=== PATIENT | male | born 1975 | race Caucasian/White ===

== ENCOUNTER 2017-10-29 14:23 | Inpatient (IN) | payer MEDICARE, OTHER ==
[~2017-10-29] VITALS: Ht 175.3 cm; Wt 65.0 kg
[2017-10-29 15:07] VITALS: BP 108/60; PULSE 79; RESP 16; TEMP 98.3; O2SAT 98
[2017-10-29] MEDS ORDERED: LEVE500S PO (15:44)
[2017-10-29] MEDS ORDERED: REPL5000 CHEW (15:44)
[2017-10-29] MEDS ORDERED: DILA30CA PO (15:44)
[2017-10-29] MEDS ORDERED: LEVO175T2 PO (15:44)
[2017-10-29] MEDS ORDERED: MORPHINE SULFATE 4 MG/ML INJ IV PUSH ONE (16:00)
--- NOTE | 2017-10-29 16:11 | PD ---
HPI Chief Complaint: Injury Time Seen by Provider: 15:23 Travel History International Travel<30 days: No Contact w/Intl Traveler<30days: No Traveled to known affect area: No History of Present Illness HPI 42-year-old man, fell in the bathroom, seen of [facility], diagnosed with an acetabular fracture, sent to the emergency department as a trauma transfer for acetabular/pelvic fracture with some evidence of hematoma. Patient's pain under control now. Otherwise feeling well. History Past Medical History Narrative Medical MR Seizure disorder Hypothyroidism Reactive hypoglycemia Ventriculomegaly Social History Alcohol Use: No Tobacco Use: No Allergies-Medications (Allergen,Severity, Reaction): Coded Allergies: No Known Allergies (Unverified , 10/29/17) Reported Meds & Prescriptions Reported Meds & Active Scripts Active Reported Dilantin (Phenytoin Extended) 30 Mg Cap 50 Mg PO TID Keppra Liq (Levetiracetam) 500 Mg/5 Ml Soln 1,000 Mg PO BID Levothyroxine (Levothyroxine Sodium) 175 Mcg Tab 175 Mcg PO DAILY Replesta (Cholecalciferol) 50,000 Unit Wafr 50,000 Units CHEW Q7D Review of Systems Except as stated in HPI: all other systems reviewed are Neg Physical Exam Narrative GENERAL: 42-year-old man, no acute distress. SKIN: Focused skin assessment warm/dry. HEAD: Abnormal shape to the cranial vault. No evidence of trauma. CARDIOVASCULAR: Warm and well perfused. RESPIRATORY: Normal rate and effort. GASTROINTESTINAL: Abdomen soft, non-tender, nondistended. Hepatic and splenic margins not palpable. MUSCULOSKELETAL: No obvious deformities. No clubbing. No cyanosis. No edema. NEUROLOGICAL: Awake and alert. No obvious cranial nerve deficits. Motor grossly within normal limits. Normal speech. PSYCHIATRIC: Appropriate mood and affect; insight and judgment normal. Data Data Last Documented VS Vital Signs Date Time Temp Pulse Resp B/P (MAP) Pulse Ox O2 Delivery O2 Flow Rate FiO2 10/29/17 15:07 98.3 79 16 108/60 (76) 98 Orders Orders Pelvis, Ap Only (Routine) (10/29/17 ) Iv Access Insert/Monitor (10/29/17 15:53) Morphine Inj (Morphine Inj) (10/29/17 16:00) Consult Orthopedic (10/29/17 ) [facility] Medical Decision Making Medical Screen Exam Complete: Yes Emergency Medical Condition: Yes Medical Record Reviewed: Yes Interpretation(s) Review transfer records: CT scan of the pelvis shows a fracture the right acetabular cup in the central portion with an associated right extraperitoneal pelvic hemorrhage and hematoma formation as well as an additional fracture of the right inferior pubic he she' ll junction. CMP is generally unremarkable. CBC is unremarkable Coags are unremarkable. Differential Diagnosis Acetabular fracture, hemorrhage, bleeding Narrative Course Medical decision making 42-year-old man, presents as a trauma transfer for pelvic fracture. No evidence of active hemorrhage. Looks well. Spoke with trauma surgery, multiple , evaluate patient. Spoke with orthopedics. We'll consult on patient. Diagnosis Primary Impression: Fracture of right acetabulum Admitting Information Admitting Physician Requests: Admit Zana Patel MD Oct 29, 2017 16:11
--- NOTE | 2017-10-29 16:39 | RADRPT ---
EXAM DATE/TIME: 10/29/2017 16:10 [facility] COMPARISON: No previous studies available for comparison. INDICATIONS : Fall. Right pelvic pain. MEDICAL HISTORY : None. SURGICAL HISTORY : None. ENCOUNTER: Initial ACUITY: 1 day PAIN SCORE: 6/10 LOCATION: Right pelvis FINDINGS: Bilateral femoral heads and necks are short and modestly flattened slight broad and. This is right sl ightly worse on left. 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 Bony pelvis otherwise has normal morphology. No fracture or acute appearing subluxation is demonstrated. There is mild to moderate ri ght hip osteoarthritis. CONCLUSION: 1. No fracture or acute appearing malalignment. 2. 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 Also right -sided acetabular dysplasia. 3. Mild to moderate right hip osteoarthritis. Danilo Vasques MD on October 29, 2017 at 16:35 Board Certified Radiologist. This report was verified electronically.
[2017-10-29] MEDS ORDERED: ACETAMINOPHEN/HYDROcodone 325 MG/5 MG TAB PO PRN (16:45)
[2017-10-29] MEDS ORDERED: MISCELLANEOUS NURSING INFORMATION XX SCH (16:45)
[2017-10-29] MEDS ORDERED: SODIUM CHLORIDE 0.9% FLUSH 10 ML FLUSH IV FLUSH PRN (16:45)
[2017-10-29] MEDS ORDERED: CHLORHEXIDINE GLUCONATE 2 % 1 PACK (2 CLOTHS) TOP PRN (16:45)
[2017-10-29] MEDS ORDERED: ONDANSETRON HCL 4 MG/2 ML VIAL IV PUSH PRN (16:45)
[2017-10-29] MEDS ORDERED: HYDROmorphone HCL PF 1 MG/ML VIAL IVP PRN (16:45)
[2017-10-29] MEDS: SODIUM CHLOR 0.9% 1000 ML INJ 1,000 ML IV SCH (17:04)
[2017-10-29 19:00] VITALS: BP 102/63; PULSE 72; RESP 15; TEMP 97.9; O2SAT 98
[2017-10-29 19:42] VITALS: BP 105/64; PULSE 73; RESP 18; O2SAT 100
[2017-10-29] MEDS ORDERED: DOCUSATE SODIUM 100 MG CAP PO SCH (21:00)
[2017-10-30] VITALS: BP 101/62; PULSE 82; RESP 16; TEMP 98.1; O2SAT 99
[2017-10-30] MEDS: ACETAMINOPHEN/HYDROcodone 325 MG/5 MG TAB PO PRN ×2 (00:41→10:44)
[2017-10-30 04:00] VITALS: BP 97/65; PULSE 80; RESP 19; TEMP 96; O2SAT 99
[2017-10-30] MEDS ORDERED: CHLORHEXIDINE GLUCONATE 2 % 1 PACK (2 CLOTHS) TOP SCH (04:00)
[2017-10-30] MEDS: SODIUM CHLOR 0.9% 1000 ML INJ 1,000 ML IV SCH (04:51)
[2017-10-30 05:58] LABS: AUTOMATED NEUTROPHIL # 2.8 TH/MM3 (1.8-7.7); BASOPHIL % 0.3 % (0.0-2.0); EOSINOPHIL # 0.1 TH/MM3 (0-0.4); EOSINOPHIL % 2.6 % (0.0-4.0); HEMATOCRIT 39.7 % (39.0-51.0); HEMO FLAGS DIFF FINAL; LYMPH % 31.7 % (9.0-44.0); LYMPHOCYTE # 1.7 TH/MM3 (1.0-4.8); MEAN CELL VOLUME 93.8 FL (80.0-100.0); MEAN CORPUSCULAR HEMOGLOBIN 31.5 PG (27.0-34.0); MEAN CORPUSCULAR HGB CONC 33.6 % (32.0-36.0); NEUT % 52.4 % (16.0-70.0); PLATELET COUNT 194 TH/MM3 (150-450); RED BLOOD COUNT 4.23 MIL/MM3 (4.50-5.90); RED CELL DISTRIBUTION WIDTH 13.7 % (11.6-17.2); WHITE BLOOD COUNT 5.4 TH/MM3 (4.0-11.0)
[2017-10-30 06:26] LABS: BICARBONATE 27.9 MEQ/L (21.0-32.0); POTASSIUM 3.8 MEQ/L (3.5-5.1)
--- NOTE | 2017-10-30 06:44 | PD.ORT.PN ---
Subjective Subjective Remarks Transferred in due to acetabular fracture of right side. He has had chronic right-sided weakness due to defect. No other associated injuries Objective Vitals Vital Signs Date Time Temp Pulse Resp B/P (MAP) Pulse Ox O2 Delivery O2 Flow Rate FiO2 10/30/17 04:00 96.0 80 19 97/65 (76) 99 10/30/17 00:00 98.1 82 16 101/62 (75) 99 10/29/17 20:02 10/29/17 19:42 73 18 105/64 (78) 100 Room Air 10/29/17 19:00 97.9 72 15 102/63 (76) 98 10/29/17 15:07 98.3 79 16 108/60 (76) 98 I/O 10/29/17 10/29/17 10/29/17 10/30/17 10/30/17 10/30/17 07:00 15:00 23:00 07:00 15:00 23:00 Intake Total 0 ml 0 ml Output Total 200 ml Balance -200 ml 0 ml Intake Oral 0 ml 0 ml Output Urine Total 200 ml # Voids 1 0 # Bowel Movements 0 0 Result Diagram: 10/30/17 0524 10/30/17 0524 Imaging Last 72 hours Impressions Pelvis X-Ray 10/29/17 0000 Signed Impressions: Service Date/Time: Sunday, October 29, 2017 16:10 - CONCLUSION: 1. No fracture or acute appearing malalignment. 2. 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 Also right-sided acetabular dysplasia. 3. Mild to moderate right hip osteoarthritis. Danilo Vasques MD Objective Remarks Right upper extremity: Contractures to elbow and wrist and fingers. He is unable to extend his elbow and dorsiflex his wrist. Left upper extremity: Full range of motion neurovascularly intact Left lower extremity: Full range of motion and neurovascularly intact Right lower extremity: No pain with knee or ankle range of motion. Minimal pain with passive range of motion of hip. Active motion elicit significant tenderness through his hip. Distally he has intact sensation with weak dorsiflexion plantar flexion foot Assessment & Plan Assessment and Plan Right acetabular fracture and rami fracture CT is reviewed from [facility]. We will continue to treat this nonoperatively. Weightbearing as tolerated with physical therapy Will work with physical therapy and plan for discharge to rehabilitation [place] [facility]. He will follow-up for repeat x-rays in 2 weeks with [place]ics [place] Oct 30, 2017 06:44
--- NOTE | 2017-10-30 06:57 | RADRPT ---
EXAM DATE/TIME: 10/30/2017 05:38 [facility] COMPARISON: PELVIS AP ONLY, October 29, 2017, 16:10. INDICATIONS : Short of breath, pelvis fracture MEDICAL HISTORY : pelvis fracture SURGICAL HISTORY : None. ENCOUNTER: Initial ACUITY: 2 days PAIN SCORE: 0/10 LOCATION: Bilateral chest FINDINGS: A single view of the chest demonstrates the lungs to be symmetrically aerated without evidence of mas s, infiltrate or effusion. The cardiomediastinal contours are unremarkable. Osseous structures are intact. A catheter is projected over the left upper lobe and central chest. A catheter is also projec presley over the left upper abdomen and this may represent shunt catheter tubing. CONCLUSION: No acute disease. Loc Guerin MD on October 30, 2017 at 6:54 Board Certified Radiologist. This report was verified electronically.
--- NOTE | 2017-10-30 07:05 | MB ---
cc: RJ CHARLES DATE OF ADMISSION 10/29/2017 DATE OF CONSULTATION 10/30/2017 REASON FOR CONSULTATION Right-sided pelvic acetabular fractures. HISTORY Loc is a 42-year-old male who lives at a intermediate. He has a history of right-sided weakness related to . He was in the bathroom when he fell. He landed on his right side. He had right-sided hip and groin pain. He presented to [facility] in [place]. He was diagnosed with an acetabular fracture. He was subsequently transferred to [place] for definitive treatment. Apparently his pain is controlled. He does have mild right-sided hip pain. The pain is worse with active movement. PAST MEDICAL HISTORY ILLNESSES: 1. Seizure disorder. 2. Hypoglycemia. 3. Hypothyroidism. 4. Ventriculomegaly. ALLERGIES No known drug allergies. MEDICATIONS 1. Dilantin. 2. Keppra. 3. Levothyroxine. 4. Replesta. SOCIAL HISTORY The patient lives in a intermediate. He denies alcohol, tobacco or drug use. REVIEW OF SYSTEMS The patient denies headache, visual changes, neck pain, chest pain, shortness of breath, abdominal pain, nausea, vomiting, fevers or chills, numbness or tingling of all extremities. He has chronic right-sided arm and leg weakness. PHYSICAL EXAMINATION GENERAL: The patient is a thin, 42-year-old male in no acute distress. He is awake and alert. He appears well-developed and well-nourished. VITAL SIGNS: Temperature 96.0, pulse 80, respirations 19, blood pressure 07/65. O2 sat is 99% on room air. HEAD: The patient is normocephalic. NECK: Soft, nontender. Trachea is midline. ABDOMEN: Soft, non-tender, non-distended. EXTREMITIES: Examination of the right arm reveals some muscular atrophy as well as contractures of the arm. Skin is intact. He has good capillary refill in his fingers. Examination of the left arm reveals no pain with shoulder, elbow or wrist motion. He has intact sensation of all fingers. He has good capillary refill of all fingers. Skin is intact. Examination of the left leg reveals no pain with hip, knee or ankle motion. Skin is intact. Dorsalis pedis pulse palpable. Sensation is intact. Examination of the right leg reveals mild discomfort with active right hip range of motion. He has some atrophy of the right leg. He has no pain with knee or ankle motion. Skin is intact. IMAGING STUDIES CT scan was reviewed from [facility]. CT scan reveals an inferior pubic rami fracture of the right side. There is also a very small avulsion type fracture off the posterior wall of the acetabulum. IMPRESSION 1. Congenital right-sided weakness. 2. Right inferior pubic rami fractures. 3. Nondisplaced avulsion fracture of the right posterior wall of acetabulum. PLAN The treatment options were discussed with the patient. At this point the patient may weight bear as tolerated on his right leg. He should follow posterior hip precautions on the right side. I would expect these fractures to heal uneventfully. It is recommended that the patient follow up with an orthopedic surgeon in [place]. He may be discharged back to his intermediate from an orthopedic standpoint. All questions were answered. MD BARRERA Woods/DORA /6:39 AM /6:44 AM
[2017-10-30 08:00] VITALS: BP 114/61; PULSE 79; RESP 16; TEMP 95.8; O2SAT 99
[2017-10-30] MEDS ORDERED: LACTULOSE SYRUP 20 GM/30 ML CUP PO PRN (08:15)
[2017-10-30] MEDS ORDERED: HYDROmorphone HCL PF 1 MG/ML VIAL IVP PRN (08:15)
[2017-10-30] MEDS: DOCUSATE SODIUM 50 MG/SENNA 8.6 MG TAB PO SCH ×2 (09:00→20:52)
[2017-10-30] MEDS ORDERED: WALKER/ADULT/FO1 MIS (09:02)
[2017-10-30] MEDS ORDERED: WHEEMIS3 (09:02)
[2017-10-30] MEDS ORDERED: HYDR-3580 PO (09:02)
[2017-10-30] MEDS: POLYETHYLENE GLYCOL 17 GM PKG PO SCH (09:48)
[2017-10-30] MEDS ORDERED: INFLUENZA VIRUS VACCINE (QUADRIVALENT) 0.5 ML SYR IM ONE (10:00)
[2017-10-30] MEDS ORDERED: LEVOTHYROXINE SODIUM 75 MCG TAB PO SCH (10:15)
[2017-10-30] MEDS: LEVOTHYROXINE SODIUM 100 MCG TAB PO SCH (10:43)
[2017-10-30] MEDS: levETIRAcetam 500 MG/5 ML UDC PO SCH ×2 (10:44→20:52)
[2017-10-30 12:00] VITALS: BP 120/68; PULSE 77; RESP 16; TEMP 95.8; O2SAT 99
--- NOTE | 2017-10-30 12:43 | HHI.PR ---
Subjective Subjective Notes Painful when got OOB today Max assist OOB x 2 Objective Vitals/I&O Vital Signs Date Time Temp Pulse Resp B/P (MAP) Pulse Ox O2 Delivery O2 Flow Rate FiO2 10/30/17 08:00 95.8 79 16 114/61 (78) 99 10/29/17 19:42 Room Air Labs Laboratory Tests Test 10/30/17 05:24 White Blood Count 5.4 Red Blood Count 4.23 Hemoglobin 13.3 Hematocrit 39.7 Mean Corpuscular Volume 93.8 Mean Corpuscular Hemoglobin 31.5 Mean Corpuscular Hemoglobin Concent 33.6 Red Cell Distribution Width 13.7 Platelet Count 194 Mean Platelet Volume 7.1 Neutrophils (%) (Auto) 52.4 Lymphocytes (%) (Auto) 31.7 Monocytes (%) (Auto) 13.0 Eosinophils (%) (Auto) 2.6 Basophils (%) (Auto) 0.3 Neutrophils # (Auto) 2.8 Lymphocytes # (Auto) 1.7 Monocytes # (Auto) 0.7 Eosinophils # (Auto) 0.1 Basophils # (Auto) 0.0 CBC Comment DIFF FINAL Differential Comment Blood Urea Nitrogen 8 Creatinine 0.68 Random Glucose 85 Calcium Level 8.2 Sodium Level 141 Potassium Level 3.8 Chloride Level 108 Carbon Dioxide Level 27.9 Anion Gap 5 Estimat Glomerular Filtration Rate 127 Radiology Last Impressions Chest X-Ray 10/30/17 0000 Signed Impressions: Service Date/Time: Monday, October 30, 2017 05:38 - CONCLUSION: No acute disease. Loc Guerin MD Pelvis X-Ray 10/29/17 0000 Signed Impressions: Service Date/Time: Sunday, October 29, 2017 16:10 - CONCLUSION: 1. No fracture or acute appearing malalignment. 2. 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 Also right-sided acetabular dysplasia. 3. Mild to moderate right hip osteoarthritis. Danilo Vasques MD Narrative Exam GENERAL: 42-year-old well-nourished, well developed male lying in bed. SKIN: Warm and dry. HEAD: Normocephalic. EYES: PERRL. ENT: No nasal bleeding or discharge. Mucous membranes pink and moist. NECK: Trachea midline. No JVD. CARDIOVASCULAR: Regular rate and rhythm. RESPIRATORY: No accessory muscle use. Lungs clear to auscultation. Breath sounds equal bilaterally. GASTROINTESTINAL: Abdomen soft, non-tender, nondistended. + BS. MUSCULOSKELETAL: Extremities without cyanosis, or edema. MAEW. + perfused NEUROLOGICAL: Awake and alert. Normal speech. A/P Assessment and Plan [place]: Fell from the standing position in the bathroom. ? LOC. Transferred from [facility] for Trauma services. INJURIES: RIGHT acetabular avulsion fx RIGHT inferior pubic rami fx PMHx: MR, seizures, hypothyroidism, reactive hypoglycemia, ventriculomegaly Diet: Regular Pulm: IS Pain: [place], Dilaudid IV Activity: OOB. PT ordered. (WBAT RLE) Bowel: Mandy-colace, Miralax, PRN Lactulose. LBM 0 DVT: SCDs RIGHT acetabular avulsion fx, RIGHT inferior pubic rami fx Orthopedics consulted Nonoperative management Pain control Weightbearing as tolerated OOB- PT and OT ordered Plan of care discussed with patient at bedside. Case management consulted to assist with discharge planning. Raul Parker DIRECTOR SPECIALTY Oct 30, 2017 12:43
[2017-10-30] MEDS ORDERED: PHENYTOIN 50 MG CHEWABLE TAB PO SCH (13:00)
[2017-10-30] MEDS ORDERED: traMADol HCL 50 MG TAB PO PRN (15:00)
[2017-10-30] MEDS: ACETAMINOPHEN 325 MG TAB PO PRN (15:39)
[2017-10-30] MEDS: KETOROLAC TROMETHAMINE 30 MG/ML (IVP) VIAL IV PUSH SCH ×2 (15:40→17:19)
[2017-10-30 16:00] VITALS: BP 108/61; PULSE 77; RESP 16; TEMP 96.1; O2SAT 98
[2017-10-30] MEDS: PHENYTOIN 50 MG CHEWABLE TAB PO SCH (17:18)
[2017-10-30 20:30] VITALS: BP 105/66; PULSE 74; RESP 18; TEMP 96.7; O2SAT 100
[2017-10-31 00:12] VITALS: BP 99/54; PULSE 84; RESP 17; TEMP 96.8; O2SAT 99
[2017-10-31] MEDS: LEVOTHYROXINE SODIUM 75 MCG TAB PO SCH (06:06)
[2017-10-31] MEDS: KETOROLAC TROMETHAMINE 30 MG/ML (IVP) VIAL IV PUSH SCH ×4 (06:07→19:30)
[2017-10-31] MEDS: LEVOTHYROXINE SODIUM 100 MCG TAB PO SCH (06:07)
--- NOTE | 2017-10-31 06:20 | MH ---
cc: RODOLFO OCASIO MD DATE OF ADMISSION: 10/29/2017 CHIEF COMPLAINT 1. Right-sided pelvic acetabular fracture. 2. Status post fall. 3. Trauma transfer HISTORY OF PRESENT ILLNESS The patient is a 42-year-old male with multiple medical issues including cerebral palsy and right-sided weakness. The patient lives in a longterm, is status post fall in the bathroom while shaving. He landed on his right side, complained of right hip and right groin pain. He presented initially to [facility] with further imaging/further workup showing acetabular fracture with small hematoma. He was transferred to [place] for definitive management. He was noted to be hemodynamically stable. His hemoglobin also was noted to be stable and complaining of mild pain. PAST MEDICAL HISTORY 1. Seizure disorder. 2. Hypoglycemia. 3. Hypothyroidism. 4. Ventriculomegaly. PAST SURGICAL HISTORY Poor historian. Unable to appropriately document. However, has multiple surgeries. ALLERGIES No known drug allergies. MEDICATIONS See EMR. SOCIAL HISTORY [facility]. Denies ETOH, smoking or IVDA. FAMILY HISTORY Denies diabetes or hypertension. REVIEW OF SYSTEMS A 12-point review of systems is done and is otherwise negative except for above. PHYSICAL EXAMINATION GENERAL: Patient in no acute distress. VITAL SIGNS: Initial temperature 98.7, pulse 82, blood pressure 110/56, respirations 18, 99% on room air. HEENT: Pupils equal, round and reactive. Atraumatic. NECK: Supple. Trachea midline. LUNGS: Bilateral expansion, clear. CLAVICLES: Nontender. HEART: S1, S2. Regular. ABDOMEN: Soft, non-tender, non-distended. PELVIS: Stable, however, positive tenderness to palpation in right-sided pelvic hip area. Small abrasion. EXTREMITIES: Atrophy of both right upper and right lower extremity. NEUROLOGIC: GCS of 15. 5/5 motor left upper extremity and left lower extremity. range of motion in right upper and right lower extremities with atrophy. PSYCH: Appropriate insight and judgment. : Within normal limits. BACK: No stepoff. Nontender. LABORATORY/DIAGNOSTIC DATA WBC 7.1, hemoglobin 41.1, hematocrit 41, platelets 214. Sodium 144, potassium 3.8, chloride 102, BUN 12, creatinine 0.8. IMAGING STUDIES CT scans reviewed by myself showing from [facility] inferior pubic rami fracture on right, small acetabular fracture, small hematoma. ASSESSMENT The patient is a 42-year-old male status post fall. Congenital right-sided weakness. Pelvic fracture. Acetabular fracture. Small hematoma. PLAN 1. After full clinical radiologic and laboratory workup, the patient with above-named issues. The patient does have a small hematoma. At this point we will continue to check hemoglobins, monitor clinically for change in vital signs. If hematoma is expanding, which it does not appear clinically to be doing at this time, we will possibly discussed with interventional radiology. 2. Also consultation to Orthopedics for further evaluation and management of pelvic fracture/acetabular fractures. 3. Further pain control. 4. IV fluids. 5. Physical therapy. 6. Okay for diet once cleared from Orthopedics. MD MARCO Wilkinson/DORA /8:45 PM /6:01 AM
--- NOTE | 2017-10-31 06:48 | PD.ORT.PN ---
Subjective Subjective Remarks Resting distally. Continued to have difficulty ambulating due to pain and right hip Objective Vitals Vital Signs Date Time Temp Pulse Resp B/P (MAP) Pulse Ox O2 Delivery O2 Flow Rate FiO2 10/31/17 00:12 96.8 84 17 99/54 (69) 99 10/30/17 20:30 96.7 74 18 105/66 (79) 100 10/30/17 16:00 96.1 77 16 108/61 (77) 98 10/30/17 12:00 95.8 77 16 120/68 (85) 99 10/30/17 08:00 95.8 79 16 114/61 (78) 99 I/O 10/30/17 10/30/17 10/30/17 10/31/17 10/31/17 10/31/17 07:00 15:00 23:00 07:00 15:00 23:00 Intake Total 0 ml 660 ml 240 ml Output Total 1050 ml 500 ml Balance 0 ml -390 ml -260 ml Intake Oral 0 ml 660 ml 240 ml Output Urine Total 1050 ml 500 ml # Voids 0 0 # Bowel Movements 0 0 0 Result Diagram: 10/30/17 0524 10/30/17 0524 Imaging Last 72 hours Impressions Pelvis X-Ray 10/29/17 0000 Signed Impressions: Service Date/Time: Sunday, October 29, 2017 16:10 - CONCLUSION: 1. No fracture or acute appearing malalignment. 2. 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 Also right-sided acetabular dysplasia. 3. Mild to moderate right hip osteoarthritis. Danilo Vasques MD Objective Remarks Right upper extremity: Contractures to elbow and wrist and fingers. He is unable to extend his elbow and dorsiflex his wrist. Left upper extremity: Full range of motion neurovascularly intact Left lower extremity: Full range of motion and neurovascularly intact Right lower extremity: No pain with knee or ankle range of motion. Minimal pain with passive range of motion of hip. Active motion elicit significant tenderness through his hip. Distally he has intact sensation with weak dorsiflexion plantar flexion foot Assessment & Plan Assessment and Plan Right acetabular fracture and rami fracture CT is reviewed from [facility]. We will continue to treat this nonoperatively. Weightbearing as tolerated with physical therapy Will work with physical therapy and plan for discharge to rehabilitation [facility]. He will follow-up for repeat x-rays in 2 weeks with [place]ics [place] Oct 31, 2017 06:48
[2017-10-31 07:34] VITALS: BP 94/54; PULSE 77; RESP 18; TEMP 96; O2SAT 99
[2017-10-31] MEDS: ACETAMINOPHEN 325 MG TAB PO PRN (10:08)
[2017-10-31] MEDS: PHENYTOIN 50 MG CHEWABLE TAB PO SCH ×3 (10:08→19:28)
[2017-10-31] MEDS: DOCUSATE SODIUM 50 MG/SENNA 8.6 MG TAB PO SCH ×2 (10:08→20:59)
[2017-10-31] MEDS: POLYETHYLENE GLYCOL 17 GM PKG PO SCH (10:09)
[2017-10-31] MEDS: levETIRAcetam 500 MG/5 ML UDC PO SCH ×2 (10:09→20:59)
[2017-10-31 11:47] VITALS: BP 100/60; PULSE 78; RESP 18; TEMP 96.8; O2SAT 96
[2017-10-31] MEDS ORDERED: ENOXAPARIN SODIUM 40 MG/0.4 ML SYRINGE SQ SCH (12:00)
--- NOTE | 2017-10-31 13:36 | HHI.PR ---
Subjective Subjective Notes Pain controlled Having urinary retention Objective Vitals/I&O Vital Signs Date Time Temp Pulse Resp B/P (MAP) Pulse Ox O2 Delivery O2 Flow Rate FiO2 10/31/17 11:47 96.8 78 18 100/60 (73) 96 10/29/17 19:42 Room Air Radiology Last Impressions Chest X-Ray 10/30/17 0000 Signed Impressions: Service Date/Time: Monday, October 30, 2017 05:38 - CONCLUSION: No acute disease. Loc Guerin MD Pelvis X-Ray 10/29/17 0000 Signed Impressions: Service Date/Time: Sunday, October 29, 2017 16:10 - CONCLUSION: 1. No fracture or acute appearing malalignment. 2. 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 Also right-sided acetabular dysplasia. 3. Mild to moderate right hip osteoarthritis. Danilo Vasques MD Narrative Exam GENERAL: 42-year-old well-nourished, well developed male lying in bed. SKIN: Warm and dry. NECK: Trachea midline. No JVD. CARDIOVASCULAR: Regular rate and rhythm. RESPIRATORY: No accessory muscle use. Lungs clear to auscultation. Breath sounds equal bilaterally. GASTROINTESTINAL: Abdomen soft, non-tender, nondistended. + BS. MUSCULOSKELETAL: Extremities without cyanosis, or edema. MAEW. + perfused NEUROLOGICAL: Awake and alert. Normal speech. A/P Assessment and Plan [place]: Fell from the standing position in the bathroom. ? LOC. Transferred from [facility] for Trauma services. INJURIES: RIGHT acetabular avulsion fx RIGHT inferior pubic rami fx PMHx: MR, seizures, hypothyroidism, reactive hypoglycemia, ventriculomegaly Diet: Regular Pulm: IS Pain: Tylenol, Ultram, Toradol IV Activity: OOB. PT ordered. (WBAT RLE) Bowel: Mandy-colace, Miralax, PRN Lactulose. LBM 0 DVT: SCDs, Lovenox 40 QD RIGHT acetabular avulsion fx, RIGHT inferior pubic rami fx Orthopedics consulted Nonoperative management Pain control Weightbearing as tolerated OOB- PT and OT ordered Lovenox Urinary retention Banuelos catheter placed Bladder training Attempt to remove Banuelos catheter tomorrow Plan of care discussed with patient, father and RN at bedside. Case management consulted to assist with discharge planning. Patient will need SNF placement. Raul Parker Oct 31, 2017 13:36
[2017-10-31 15:46] VITALS: BP 104/64; PULSE 61; RESP 18; TEMP 95.3; O2SAT 100
[2017-10-31 20:20] VITALS: BP 101/67; PULSE 82; RESP 18; TEMP 96.8; O2SAT 95
[2017-11-01 00:35] VITALS: BP 95/58; PULSE 80; RESP 17; TEMP 96.8; O2SAT 97
[2017-11-01] MEDS: ACETAMINOPHEN 325 MG TAB PO PRN ×2 (04:09→10:36)
[2017-11-01 05:36] LABS: AUTOMATED NEUTROPHIL # 3.3 TH/MM3 (1.8-7.7); BASOPHIL % 0.4 % (0.0-2.0); EOSINOPHIL # 0.2 TH/MM3 (0-0.4); EOSINOPHIL % 3.9 % (0.0-4.0); HEMATOCRIT 37.8 % (39.0-51.0); HEMO FLAGS DIFF FINAL; LYMPHOCYTE # 1.1 TH/MM3 (1.0-4.8); MEAN CELL VOLUME 93.6 FL (80.0-100.0); MEAN CORPUSCULAR HGB CONC 34.2 % (32.0-36.0); MONO % 9.2 % (0.0-8.0); NEUT % 64.5 % (16.0-70.0); PLATELET COUNT 207 TH/MM3 (150-450); RED BLOOD COUNT 4.04 MIL/MM3 (4.50-5.90); RED CELL DISTRIBUTION WIDTH 13.8 % (11.6-17.2); WHITE BLOOD COUNT 5.1 TH/MM3 (4.0-11.0)
[2017-11-01 06:08] LABS: BICARBONATE 28.3 MEQ/L (21.0-32.0); POTASSIUM 4.1 MEQ/L (3.5-5.1)
[2017-11-01] MEDS: LEVOTHYROXINE SODIUM 75 MCG TAB PO SCH (06:10)
[2017-11-01] MEDS: KETOROLAC TROMETHAMINE 30 MG/ML (IVP) VIAL IV PUSH SCH ×2 (06:10)
[2017-11-01] MEDS: LEVOTHYROXINE SODIUM 100 MCG TAB PO SCH (06:10)
[2017-11-01 07:11] LABS: CALCIUM-PROTEIN CORRECTED 7.2 MG/DL (8.5-10.1)
[2017-11-01 07:38] VITALS: BP 104/65; PULSE 77; RESP 18; TEMP 95.7; O2SAT 96
[2017-11-01] MEDS ORDERED: CALCIUM CARBONATE 500 MG CHEWABLE TAB CHEW SCH (09:00)
[2017-11-01] MEDS: PHENYTOIN 50 MG CHEWABLE TAB PO SCH ×2 (10:36→13:25)
[2017-11-01] MEDS: DOCUSATE SODIUM 50 MG/SENNA 8.6 MG TAB PO SCH (10:36)
[2017-11-01] MEDS: POLYETHYLENE GLYCOL 17 GM PKG PO SCH (10:36)
[2017-11-01] MEDS: levETIRAcetam 500 MG/5 ML UDC PO SCH (10:36)
[2017-11-01] MEDS ORDERED: TYLE325T PO (11:06)
[2017-11-01] MEDS ORDERED: BISACODYL 10 MG SUPP RECTAL ONE (11:15)
[2017-11-01 11:39] VITALS: BP 113/71; PULSE 76; RESP 18; TEMP 96.4; O2SAT 100
[2017-11-01] MEDS ORDERED: ENOX40P SQ (12:57)
[2017-11-01] MEDS ORDERED: Calcium Carbonate Chew CHEW (13:00)
--- NOTE | 2017-11-01 13:01 | HHI.DS ---
Discharge Summary Admission Date Oct 29, 2017 at 17:55 Discharge Date: Nov 01, 2017 Admitting Diagnosis pelvis fracture (1) Fall from standing ICD Codes: W19.XXXA - Unspecified fall, initial encounter (2) Fracture of right acetabulum ICD Codes: S32.401A - Unspecified fracture of right acetabulum, initial encounter for closed fracture Status: Acute Brief History S/P Trauma: Fall CBC/BMP: 11/01/17 0527 11/01/17 0507 Significant Findings Laboratory Tests Test 10/30/17 05:24 11/01/17 05:07 11/01/17 05:27 Red Blood Count 4.23 MIL/MM3 (4.50-5.90) 4.04 MIL/MM3 (4.50-5.90) Monocytes (%) (Auto) 13.0 % (0.0-8.0) 9.2 % (0.0-8.0) Calcium Level 8.2 MG/DL (8.5-10.1) 6.9 MG/DL (8.5-10.1) Chloride Level 108 MEQ/L (98-107) 109 MEQ/L (98-107) Protein Corrected Calcium 7.2 MG/DL (8.5-10.1) Hemoglobin 12.9 GM/DL (13.0-17.0) Hematocrit 37.8 % (39.0-51.0) Imaging Last Impressions Chest X-Ray 10/30/17 0000 Signed Impressions: Service Date/Time: Monday, October 30, 2017 05:38 - CONCLUSION: No acute disease. Loc Guerin MD Pelvis X-Ray 10/29/17 0000 Signed Impressions: Service Date/Time: Sunday, October 29, 2017 16:10 - CONCLUSION: 1. No fracture or acute appearing malalignment. 2. 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 Also right-sided acetabular dysplasia. 3. Mild to moderate right hip osteoarthritis. Danilo Vasques MD PE at Discharge GENERAL: 42-year-old well-nourished, well developed male OOB in chair. SKIN: Warm and dry. NECK: Trachea midline. No JVD. CARDIOVASCULAR: Regular rate and rhythm. RESPIRATORY: No accessory muscle use. Lungs clear to auscultation. Breath sounds equal bilaterally. GASTROINTESTINAL: Abdomen soft, non-tender, nondistended. + BS. MUSCULOSKELETAL: Extremities without cyanosis, or edema. MAEW. + perfused NEUROLOGICAL: Awake and alert. Normal speech. Hospital Course [place]: Fell from the standing position in the bathroom. ? LOC. Transferred from [facility] for Trauma services. INJURIES: RIGHT acetabular avulsion fx RIGHT inferior pubic rami fx RIGHT acetabular avulsion fx, RIGHT inferior pubic rami fx Orthopedics consulted Nonoperative management Pain control Hgb stable Weightbearing as tolerated OOB- PT and OT ordered Lovenox Follow-up as outpatient Urinary retention DC Lakisha moss Hypocalcemia Tums twice a day F/U with PCP in 1 week Plan of care discussed with patient & RN at bedside. Case management consulted to assist with discharge planning. Patient is clear from trauma surgery standpoint to safely discharge inpatient rehabilitation. Pt Condition on Discharge: Stable Discharge Disposition: Discharge to SNF Discharge Instructions DIET: Follow Instructions for: As Tolerated, No Restrictions Activities you can perform: Weight Bearing as Koki Raul Parker Nov 01, 2017 13:01
== END 2017-11-01 14:16 | DRG 535 ==
LOC: NEPE 14:23 → NEDA 17:55 → N06A 20:15
PROVIDERS: ADMIT Surgery; ATTEND Surgery
PROC: 0T9B70Z Drainage of Bladder with Drainage Device, Via Natural or Artificial Opening (ICD-10-PCS; principal; 2017-10-31)
DX: S32.591A Other specified fracture of right pubis, initial encounter for closed fracture (principal); S32.401A Unspecified fracture of right acetabulum, initial encounter for closed fracture; G93.89 Other specified disorders of brain; E83.51 Hypocalcemia; W18.30XA Fall on same level, unspecified, initial encounter; G40.909 Epilepsy, unspecified, not intractable, without status epilepticus; E03.9 Hypothyroidism, unspecified; G80.9 Cerebral palsy, unspecified; R33.9 Retention of urine, unspecified; Y92.002 Bathroom of unspecified non-institutional (private) residence as the place of occurrence of the external cause; Z23 Encounter for immunization
CPT/HCPCS: 71010; 72170; 80048; 84155; 85025; 90686; 94150; 96374; J1170; J1650; J1885; J2270; J7030; Q2038